=== PATIENT | male | born 1985 | race African-American/Black ===

== ENCOUNTER 2022-06-16 23:07 | Emergency (ER) | payer SELFPAY ==
[2022-06-16] MEDS ORDERED: Ketorolac Tromethamine 30 MG/ML VIAL ONE (23:36)
== END 2022-06-17 00:04 | disposition home or self-care (01) ==
LOC: CSHERS 23:07
DX: M94.0 Chondrocostal junction syndrome [Tietze] (principal)
CPT/HCPCS: 71045; 93005; 96372; J1885

== ENCOUNTER 2025-02-19 22:37 | Emergency (ER) | payer OTHER ==
[2025-02-20 01:44] LABS: ALT (SGPT) 60 U/L (Less than 45); AST (SGOT) 45 U/L (11-34); Albumin 3.7 g/dL (3.1-4.5); Alkaline Phosphatase 62 U/L (40-110); Anion Gap 13 mmol/L (10-20); BUN (Urea Nitrogen) 20 mg/dL (8.9-20.6); Bilirubin, Total 0.4 mg/dL (0.3-1.2); Calc. Creatinine Clearance 0 mL/min (70-130); Calcium 8.4 mg/dL (7.8-10.44); Carbon Dioxide 22 mmol/L (22-29); Chloride 113 mmol/L (98-107); Globulin 2.7 g/dL (2.4-3.5); Glucose 128 mg/dL (70-105); Hematocrit 39.9 % (38.8-50.0); Hemoglobin 12.5 g/dL (13.5-17.5); Mean Corpuscular Hemoglobin 26.3 pg (27.0-33.0); Mean Corpuscular Volume 84.0 fL (81.2-95.1); Platelet Count 163 10x3/uL (150-450); Potassium 4.0 mmol/L (3.5-5.1); Red Blood Cell (RBC) Count 4.75 10x6/uL (4.32-5.72); Sodium 144 mmol/L (136-145); Troponin I 0.128 ng/mL (< 0.028); White Blood Cell (WBC) Count 12.45 10x3/uL (3.5-10.5)
[2025-02-20 01:50] LABS: MDiff Complete? YES; Platelet Adequacy Comment Appears Adequate; RBC Morphology Within Normal Limits
[2025-02-20] MEDS ORDERED: Furosemide 40 MG (4 mL) VIAL ONE (01:54)
[2025-02-20] MEDS ORDERED: Nitroglycerin 2% Ointment 1 INCH/1 GM Packet ONE (01:54)
[2025-02-20] MEDS ORDERED: Azithromycin 500 MG VIAL ONE (01:59)
[2025-02-20] MEDS ORDERED: cefTRIAXone (ROCEPHIN) 1 GM VIAL ONE (01:59)
[2025-02-20] MEDS ORDERED: Aspirin Chewable 81 MG TAB ONE (02:15)
== END 2025-02-20 03:53 | disposition short-term general hospital (02) ==
LOC: CSHERS 22:37
DX: J18.9 Pneumonia, unspecified organism (principal); J96.91 Respiratory failure, unspecified with hypoxia; I50.9 Heart failure, unspecified; I21.4 Non-ST elevation (NSTEMI) myocardial infarction; E87.70 Fluid overload, unspecified
CPT/HCPCS: 36415; 71045; 80053; 83605; 83880; 84484; 85025; 87040; 87428; 93005; 96365; 96367; 96375; J0456; J0696; J1940